=== PATIENT | female | born 1995 | race Two or more races ===

== ENCOUNTER 2022-07-25 13:08 | Emergency (ER) | payer OTHER ==
[~2022-07-25] VITALS: Ht 165.1 cm; Wt 108.9 kg
[2022-07-25] MEDS ORDERED: PRENATAL + DHA1 EAC1 (13:23)
[2022-07-26] MEDS ORDERED: NAPR500T14 PO (13:23)
== END 2022-07-25 15:34 | disposition home or self-care (01) ==
LOC: ER 13:08
DX: O34.32 Maternal care for cervical incompetence, second trimester (principal); O46.92 Antepartum hemorrhage, unspecified, second trimester; Z3A.22 22 weeks gestation of pregnancy

== ENCOUNTER 2022-07-25 16:39 | Inpatient (IN) | payer OTHER ==
[~2022-07-25] VITALS: Ht 165.1 cm; Wt 108.9 kg
[~2022-07-25 16:39] MED LIST: PRENATAL + DHA1 EAC1
[2022-07-26] MEDS ORDERED: NAPR500T14 PO (13:23)
== END 2022-07-26 13:46 | disposition home or self-care (01) | DRG 806 ==
LOC: OBS/DEL 16:39 → LDR 19:36 → OB/GYN 19:36
PROVIDERS: ADMIT Obstetrics & Gynecology; ATTEND Obstetrics & Gynecology
PROC: 10D17Z9 Manual Extraction of Products of Conception, Retained, Via Natural or Artificial Opening (ICD-10-PCS; 2022-07-25)
PROC: 4A1HXCZ Monitoring of Products of Conception, Cardiac Rate, External Approach (ICD-10-PCS; 2022-07-25)
PROC: BY4CZZZ Ultrasonography of Second Trimester, Single Fetus (ICD-10-PCS; 2022-07-25)
PROC: 10E0XZZ Delivery of Products of Conception, External Approach (ICD-10-PCS; principal; 2022-07-25 22:00)
DX: O03.6 Delayed or excessive hemorrhage following complete or unspecified spontaneous abortion (principal); O72.2 Delayed and secondary postpartum hemorrhage; Z37.1 Single stillbirth; O42.012 Preterm premature rupture of membranes, onset of labor within 24 hours of rupture, second trimester; Z3A.19 19 weeks gestation of pregnancy; Z20.822 Contact with and (suspected) exposure to COVID-19